=== PATIENT | female | born 1965 | race Caucasian/White ===

== ENCOUNTER 2017-04-04 14:21 | Inpatient (IN) | payer OTHER ==
[~2017-04-04] VITALS: Ht 160 cm; Wt 76.0 kg
--- NOTE | ~2017-04-04 | EKG ---
PATIENT: GIACOMO PATTON UNIT #: [id number] Ventricular Rate: 70 BPM Atrial Rate: 70 BPM P-R Interval: 164 ms QRS Duration: 94 ms Q-T Interval: 408 ms QTC Calculation(Bezet): 440 ms P Trinity: 19 degrees Calculated R Trinity: 5 degrees Calculated T Trinity: 27 degrees Diagnosis Line: Normal sinus rhythm Diagnosis Line: Normal ECG Diagnosis Line: When compared with ECG of 19-SEP-2012 07:23, Diagnosis Line: No significant change was found Diagnosis Line: Confirmed by CAROLINE OLIVARES MD ([id number]) on 04/04/2017 Diagnosis Line: 11:09:35 PM INTERPRETING MD: MARSHALL SAGE
--- NOTE | ~2017-04-04 | CT4 ---
[facility] A Service of [facility] & [facility] RADIOLOGY TEXT RESULTS PATIENT: GIACOMO PATTON LOCATION: [facility] 340-01 : [birth year] UNIT #: [id number] AGE: [address]: Eugene Esparza MD SEX: F ORDER DR: [id number] [facility] [address] [facility] [place] [facility]. [place], [place] [address] [id number] MR#: [id number] Acc #: [id number] NAME: GIACOMO PATTON. : 1965 SEX: F STUDY DATE/TIME: 04/04/2017 17:11 UNIT: C3A PCU ROOM: 340 STUDY DESCRIPTION: CT Abd and Pelv Wo Cont Attending Physician: Eugene Esparza M.D. Ordering Physician: Gilmar Finley M.D. Primary Care Physician: Jose Maria Beck M.D. MEDICAL IMAGING REPORT This report is preliminary unless electronic signature is present EXAM CT abdomen and pelvis 04/04/2017 HISTORY Right flank pain, nausea for 2 days, body wide aches, diagnosed with UTI on . TECHNIQUE CT abdomen and pelvis performed without administration of oral or intravascular contrast. Study limited in the absence of both oral and intravascular contrast. This CT exam was performed with one or more of the following radiation dose reduction techniques: Automatic exposure control, adjustment of mA and/or kV according to patient size, and iterative reconstruction. COMPARISON No comparisons. FINDINGS The lung bases are clear. Inferior heart,, pericardium notable for coronary arterial calcifications. Liver unremarkable. Gallbladder, spleen, pancreas, adrenal glands remarkable. The left kidney is normal in appearance. Left ureter unremarkable. The right kidney shows minimal pyelocaliectasis relative to the left. There is mild right ureterectasis compared to left and there is some subtle right periureteral inflammatory change. No ureteral or bladder calculus is seen. The appearance of the right collecting system and ureter could be a reflection of urinary tract infection or recent stone passage. There is no perinephric or periureteral fluid collection. There is a minimal amount of lower pole perinephric inflammatory change. CT PELVIS: No inguinal adenopathy. The urinary bladder, uterus, adnexal regions are unremarkable. No free fluid the pelvis. There is no pelvic STS. [facility] A Service of [facility] RADIOLOGY TEXT RESULTS PATIENT: GIACOMO PATTON LOCATION: C3A 340-01 : 63 UNIT #: [id number] AGE: [address]: Eugene Esparza MD SEX: F ORDER DR: or retroperitoneal adenopathy. Distal esophagus unremarkable. Lap-band device with band component at level of gastroesophageal junction. The catheter component appears intact and the port component is implanted along the left paracentral mid-abdomen. Stomach otherwise unremarkable. Small bowel, appendix normal. Colon unremarkable. Atherosclerotic arterial calcifications. No acute-appearing bony abnormality. IMPRESSION 1. There is a mild right pyelocaliectasis and right ureterectasis relative to the left collecting system and there are very mild periureteral inflammatory changes and some minimal inflammatory change along the inferior pole of the right kidney. I see no renal calculi. No ureteral or bladder calculi to indicate recent stone passage. Right-sided findings might be a reflection of recent stone passage. Urinary tract infection is a consideration as well. No perinephric fluid collections. 2. Gallbladder, pancreas, appendix, uterus and adnexal regions normal. 3. Lap-band device in place. Remainder of alimentary canal unremarkable. 4. Atherosclerotic arterial calcifications in the coronary and systemic circulation. There appear to be some mitral annular calcifications as well. See remainder of incidental findings in body of report above. Dictated by... Tejinder Mills M.D. THIS IS AN ELECTRONICALLY VERIFIED REPORT Tejinder Mills M.D. at 04/06/2017 4:57 PM Peggy TD: 04/05/2017 13:39 JOB #: [id number] MEDICAL IMAGING REPORT Page 1 of 1 COPY
--- NOTE | ~2017-04-04 | DS ---
Unit #: [id number] #: [id number] Patient: GIACOMO PATTON [id number] [address] [address] [id number] I MR#: [id number] NAME: GIACOMO PATTON. ROOM: 340 Age: 52 Sex: F Admission Date: 04/04/2017 : 1965 Discharge Date: 04/06/2017 Attending Physician: Eugene Esparza M.D. Primary Care Physician: Jose Maria Beck M.D. DISCHARGE SUMMARY PRIMARY DIAGNOSIS Acute right pyelonephritis with Escherichia coli, sensitive to Rocephin, cephalothin, and nitrofurantoin and resistant to Bactrim. SECONDARY DIAGNOSES Diabetes mellitus type 2, uncontrolled; hypoglycemia here in the hospital with a level of 49 at 2:00 am; anemia, stable; hematuria, likely secondary to urinary tract infection. HOSPITAL COURSE The patient was placed in the hospital, started on IV Rocephin. Urine cultures came back with E. coli which was resistant to Bactrim, which she was initially placed on outpatient. She showed clinical improvement on Rocephin and was switched to Omnicef at discharge for 6 additional days. Her hemoglobin A1c was 10.6, which the patient reports is actually improving. She endorses good compliance with her medications, and her audiovisual tech is reportedly actively working on getting the patient approved for an insulin pump to try to improve her somewhat labile blood sugars per her report. We did not adjust any of her home insulins as she reports low blood sugars were relatively rare at home and her much more frequent issue for her is hyperglycemia. Regarding her hematuria on her urinalysis, I would recommend repeating a urinalysis in 2 to 3 weeks to make sure that the hematuria is completely resolved. No renal stones were seen on CT imaging. Obviously improving control of her blood sugars is going to be beneficial in reducing the frequency of her urinary tract infections. Next time if she has urinary tract infection, nitrofurantoin or Macrobid would be the initial drug of choice based on her current sensitivities. DISCHARGE DISPOSITION To home. DISCHARGE STATUS Stable. DISCHARGE ACTIVITY Ad oliver. DISCHARGE DIET Diabetic diet. FOLLOWUP Unit #: [id number] #: [id number] Patient: GIACOMO PATTON Followup is with her PCP in 2 to 3 weeks with a urinalysis at that time. Follow up with her audiovisual tech as already scheduled next week on 04/14/2017. DISCHARGE MEDICATIONS Adderall 30 mg p.o. b.i.d., Xanax 0.25 mg p.o. q.i.d. p.r.n. anxiety, metoprolol succinate 100 mg p.o. once daily, Basaglar KwikPen 12 units subcu q.12 hours, Humalog KwikPen 6 units with meals plus a sliding scale. The patient does not have her home sliding scale with her, but keeps multiple copies at home. Omnicef 300 mg p.o. b.i.d. x6 days. Dictated by... Eugene Esparza M.D. JACKLYN/vanesa TD: 04/09/2017 02:02 JOB #: [id number] DISCHARGE SUMMARY Page 1 of 1 X Eugene Esparza MD X DISCHARGE SUMMARY
--- NOTE | ~2017-04-04 | HP ---
Unit #: [id number] #: [id number] Patient: GIACOMO PATTON [id number] [place] [address] [id number] I MR#: [id number] NAME: GIACOMO PATTON. ROOM: 340 Age: 52 Sex: F Admission Date: 04/04/2017 : 1965 Attending Physician: Dakotah Mcdermott M.D. Primary Care Physician: Jose Maria Beck M.D. HISTORY AND PHYSICAL CHIEF COMPLAINT Abdominal pain. HISTORY OF PRESENT ILLNESS The patient is a 52-year-old female with a history of hypertension, diabetes with insulin use, and dyslipidemia, brought to the emergency room complaining of the right flank pain. The patient stated the patient was having abdominal pain, shoulder pain, nausea and diagnosis with UTI on at the clinic at the [facility]. The patient was discharged home on the Bactrim. The patient took the Bactrim and the pain subsided; however, the pain reoccurred earlier this morning and presented to the emergency department with the right flank pain. The patient had a CT of the abdomen and pelvis that showed a mild periaortic inflammation and no renal calculi associated with the UTI. The patient is being admitted for the above reasons. Denies any fevers or chills. The patient stated patient has recurrent UTIs, a few times in the past. Denies any history of stones. PAST MEDICAL HISTORY History of hypertension, hyperlipidemia, and diabetes. FAMILY HISTORY Positive for myocardial infarction. 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 No tobacco or alcohol. PAST SURGICAL HISTORY Lap band surgery, dilatation and curettage, and section. ALLERGIES Penicillin causes a rash. HOME MEDICATIONS Patient lives on Adderall, metoprolol, Xanax, insulin, Bactrim. REVIEW OF SYSTEMS Positive for the abdominal pain. Positive for nausea. Positive for the dysuria and denies any chest pain. Denies any shortness of breath. Denies any headache and all other systems have been reviewed and are negative, except as mentioned in HPI. PHYSICAL EXAMINATION Unit #: [id number] #: [id number] Patient: GIACOMO PATTON GENERAL: Patient is lying on a bed not in acute distress. VITALS: Temperature 97.4, pulse 80, respiratory rate 16, blood pressure 122/68, satting 98% on room air. HEENT: Atraumatic and normocephalic. Pupils equal, round, reactive to light and accommodation. Extraocular movements are intact. NECK: Supple. LUNGS: Decreased air entry at the basis. HEART: Regular rate and rhythm. ABDOMEN: Soft, positive bowel sounds. BACK: Positive for right CVA tenderness. EXTREMITIES: No cyanosis. No clubbing. NEUROLOGIC: Alert, awake and oriented. No gross focal motor deficits. PSYCH: Mood and affect are appropriate. DIAGNOSTIC STUDIES LABORATORY DATA: WBC 11.5, hemoglobin 13.2, hematocrit 39.9, platelet is 462. UA shows 2+ leukocyte esterase, positive nitrates, and more than 1,000 glucose, and 3+ blood and urine rbc's innumerable, and WBC innumerable. Sputum bacteria 4+. Sodium 129, potassium 4.5, chloride 91, bicarb 26, glucose 329, BUN 18, creatinine 1.2, AST 19, ALT 14, alk phos 114, amylase 1.6, lipase 16, lactic acid is 1.3 and glucose 168. ASSESSMENT 1. Right pyelonephritis. 2. Hyperglycemia. 3. Hyponatremia. PLAN Plan to admit the patient to the inpatient with the telemetry. Continue with IV antibiotics with Rocephin 1 g daily and continue with a low dose sliding scan and Accu-Cheks a.c. and h.s. Patient might benefit with urology as an outpatient and positive cystoscopy for the recurrent UTIs and probable kidney stones and further recommendations will follow. Dictated by Ariella Gibbons TD: 04/05/2017 06:58 JOB #: [id number] HISTORY AND PHYSICAL Page 1 of 1 X DAKOTAH MCDERMOTT MD X HISTORY AND PHYSICAL
[~2017-04-04 14:21] MED LIST: ALPRAZOLAM0.25 MG PO; ASPIRIN81 M1 PO; CIPRO PO; FLORINEF ACETA0.1 MG PO; HUMULIN N SUBQ; HUMULIN R100 U/ML SUBQ; LEVEMIR100 UNITS/ SUBQ; LIPITOR40 MG PO; LOESTRIN FE 1/21 TAB PO; NOVOLOG100 U/ML SUBQ; ZESTRIL10 M2 PO
[2017-04-04 14:50] LABS: URINE SOURCE CLEAN CATCH
[2017-04-04 15:04] LABS: BASOPHIL# 0.1 X10e3 (0-0.3); BASOPHIL% 0.8 % (0-2.5); EOSINOPHIL% 0.4 % (0.0-7.0); HEMATOCRIT 39.9 % (35.0-45.0); HEMOGLOBIN 13.2 gm/dL (12.0-16.0); LYMPHOCYTE# 2.3 X10e3 (1.0-3.5); LYMPHOCYTE% 20.2 % (17.0-45.0); MEAN CELL VOLUME 79.3 FL (83-96); MEAN CORPUSCULAR HEMOGLOBIN 26.2 PG (28-34); MEAN PLATELET VOLUME 7.2 FL (6.5-11.5); MONOCYTE# 1.1 X10e3 (0-1.0); MONOCYTE% 9.6 % (3.0-12.0); PLATELET COUNT 462 X10e3 (140-420); RED BLOOD COUNT 5.04 X10e (3.90-5.30); RED CELL DISTRIBUTION WIDTH 15.2 % (11.0-15.5); WHITE BLOOD COUNT 11.5 X10e3 (4.0-10.5)
[2017-04-04 15:04] LABS: URINE APPEARANCE TURBID; URINE BLOOD 3+ (NEG); URINE COLOR ORANGE; URINE GLUCOSE >1000 MG/DL (NEG); URINE KETONE 2+ (NEG); URINE LEUKOCYTE ESTERASE 2+ (NEG); URINE NITRATE POS (NEG); URINE PROTEIN 2+ (NEG); URINE SPECIFIC GRAVITY 1.023 (1.003-1.035)
[2017-04-04 15:05] LABS: DIFF IND NO
[2017-04-04 15:08] LABS: CULTURE INDICATED? YES; URBCS1 AUWI INNUM /[HPF] (0-2); URINE BACTERIA AUWI 4+ (NEGATIVE); URINE SQUAMOUS EPITHELIAL CELL OCC /[HPF]; UWBCS1 AUWI INNUM (0-5)
[2017-04-04 15:19] LABS: URINE BILIRUBIN NEG (NEG)
[2017-04-04 15:28] LABS: ALBUMIN SERUM 3.9 g/dL (3.5-5.0); BILIRUBIN, DIRECT 0.1 mg/dL (0.0-0.2); BILIRUBIN,INDIRECT 1.6 mg/dL (0.0-0.9); BILIRUBIN,TOTAL 1.7 mg/dL (0.2-2.0); CALCIUM SERUM 9.4 mg/dL (8.4-10.2); CREATININE SERUM 1.2 mg/dL (0.6-1.4); GLOM FILT RATE Estimated 51.6 mL/min (>60); POTASSIUM 4.5 mmol/L (3.5-5.1); PROTEIN TOTAL SERUM 7.9 g/dL (6.0-8.3)
[2017-04-04] MEDS ORDERED: ADDERALL 30 MG30 M1 PO (22:32)
[2017-04-04] MEDS ORDERED: METOPROLOL SUC100 MG PO (22:33)
[2017-04-04] MEDS ORDERED: ALPRAZOLAM PO (22:33)
[2017-04-04] MEDS ORDERED: SULFATRIM 800-120 ML PO (22:34)
[2017-04-04] MEDS ORDERED: BASAGLAR K100 UNIT/1 SUBQ ×2 (22:35)
[2017-04-04] MEDS ORDERED: HUMULIN R100 UNIT/1 SUBQ (22:36)
[2017-04-04] MEDS ORDERED: HUMALOG KW200 UNIT/1 SUBQ (22:36)
[2017-04-04] MEDS ORDERED: HUMALOG KW200 UNIT/1 (22:37)
[2017-04-05 07:22] LABS: BASOPHIL# 0.1 X10e3 (0-0.3); BASOPHIL% 1.3 % (0-2.5); EOSINOPHIL# 0.1 X10e3 (0-0.7); EOSINOPHIL% 1.3 % (0.0-7.0); HEMOGLOBIN 11.7 gm/dL (12.0-16.0); LYMPHOCYTE# 3.1 X10e3 (1.0-3.5); LYMPHOCYTE% 42.1 % (17.0-45.0); MEAN CELL VOLUME 79.5 FL (83-96); MEAN CORPUSCULAR HEMOGLOBIN 26.6 PG (28-34); MEAN CORPUSCULAR HGB CONC 33.4 g/dL (30-36); MONOCYTE# 0.7 X10e3 (0-1.0); MONOCYTE% 10.2 % (3.0-12.0); NEUTROPHIL# 3.3 X10e3 (1.5-7.1); NEUTROPHIL% 45.1 % (40-75); PLATELET COUNT 374 X10e3 (140-420); RED CELL DISTRIBUTION WIDTH 14.9 % (11.0-15.5); WHITE BLOOD COUNT 7.3 X10e3 (4.0-10.5)
[2017-04-05 07:25] LABS: DIFF IND NO
[2017-04-05 07:53] LABS: BUN/CREATININE RATIO 18.75; CALCIUM SERUM 8.6 mg/dL (8.4-10.2); CREATININE SERUM 0.8 mg/dL (0.6-1.4); GLOM FILT RATE Estimated 84.2 mL/min (>60); POTASSIUM 5.1 mmol/L (3.5-5.1)
[2017-04-06 05:25] LABS: HEMATOCRIT 32.7 % (35.0-45.0); HEMOGLOBIN 10.9 gm/dL (12.0-16.0); MEAN CELL VOLUME 78.8 FL (83-96); MEAN CORPUSCULAR HEMOGLOBIN 26.3 PG (28-34); MEAN CORPUSCULAR HGB CONC 33.3 g/dL (30-36); MEAN PLATELET VOLUME 7.1 FL (6.5-11.5); RED BLOOD COUNT 4.15 X10e (3.90-5.30); RED CELL DISTRIBUTION WIDTH 14.9 % (11.0-15.5); WHITE BLOOD COUNT 5.4 X10e3 (4.0-10.5)
[2017-04-06 06:07] LABS: BUN/CREATININE RATIO 18.57; CALCIUM SERUM 8.4 mg/dL (8.4-10.2); CREATININE SERUM 0.7 mg/dL (0.6-1.4); GLOM FILT RATE Estimated 98.9 mL/min (>60); POTASSIUM 4.2 mmol/L (3.5-5.1)
[2017-04-06] MEDS ORDERED: OMNICEF300 MG PO (08:13)
== END 2017-04-06 10:06 | disposition home or self-care (01) | DRG 690 ==
LOC: CED 14:21 → CEDOF 19:45 → CED 19:47 → CEDOF 19:47 → C3A PCU 22:10 → CEDOF 22:10 → C3A PCU 04-05 08:08
PROVIDERS: Emergency Medicine; Internal Medicine
DX: N10 Acute pyelonephritis (principal); E11.65 Type 2 diabetes mellitus with hyperglycemia; E87.1 Hypo-osmolality and hyponatremia; Z79.4 Long term (current) use of insulin; E78.5 Hyperlipidemia, unspecified; Z88.0 Allergy status to penicillin; D64.9 Anemia, unspecified; R31.9 Hematuria, unspecified
CPT/HCPCS: 36415; 74176; 80048; 80076; 81003; 82947; 83036; 83605; 83690; 85025; 85027; 87040; 87086; 87088; 87186; 93005; 96361; 96365; 96375; 99291; J0696; J1650; J1815; J2270; J2405; J2550